=== PATIENT | female | born 1960 | race Asian ===

== ENCOUNTER 2018-08-27 16:53 | Emergency (ER) | payer OTHER ==
[~2018-08-27] VITALS: Ht 165.1 cm; Wt 68.0 kg
[2018-08-27] MEDS ORDERED: methylPREDNISolone SOD SUCC PF 125 MG/2 ML VIAL. IV ONE (17:00)
[2018-08-27] MEDS ORDERED: diphenhydrAMINE 50 MG/ML VIAL IVP ONE (17:00)
[2018-08-27] MEDS ORDERED: FAMOTIDINE 20 MG/2 ML VIAL IVP ONE (17:00)
--- NOTE | 2018-08-27 17:09 | PHYS DOC ---
Adult General Chief Complaint Chief Complaint: ALLERGIC REACTION HPI HPI Patient is a 58 year old F who arrives to ER with complaints of facial swelling , itching all over and feeling like her tongue is thick. She does not know of any known allergies but was eating a pastry just before this started. She does report mild SOB. She states that once prior she had some swelling around her eyes after she ate a donut. She has not taken any medications at home prior to arrival. Review of Systems Review of Systems Constitutional: Denies fever or chills HENT: Denies sore throat. Reports tongue and throat feel swollen. Respiratory: Denies cough. Reports SOB. Cardiovascular: Denies CP. GI: Denies abdominal pain, nausea, vomiting, bloody stools or diarrhea Musculoskeletal: Denies back pain or joint pain Integument: Reports red itchy skin. Neurologic: Denies headache, focal weakness or sensory changes All other systems were reviewed and found to be within normal limits, except as documented in this note. Current Medications Current Medications Current Medications Medications (Trade) Dose Ordered Sig/Miriam Start Time Stop Time Status Last Admin Dose Admin Diphenhydramine HCl (Benadryl) 25 mg 1X ONCE 08/27/18 17:00 08/27/18 17:08 DC 08/27/18 17:12 25 MG Famotidine (Pepcid Vial) 20 mg 1X ONCE 08/27/18 17:00 08/27/18 17:08 DC 08/27/18 17:11 20 MG Methylprednisolone Sodium Succinate (SOLU-Medrol 125MG VIAL) 125 mg 1X ONCE 08/27/18 17:00 08/27/18 17:08 DC 08/27/18 17:11 125 MG Allergies Allergies Allergies Coded Allergies Type Severity Reaction Last Updated Verified No Known Drug Allergies 08/27/18 No Physical Exam Physical Exam Constitutional: Well developed, well nourished, no acute distress, non-toxic appearance. HENT: Normocephalic, atraumatic. Face appears puffy, uvula appears mildly swollen, tongue appears normal, oropharynx patent at time of exam Eyes: PERRLA, EOMI, conjunctiva normal, edema periorbital B Neck: Normal range of motion, no tenderness, supple, no stridor. Cardiovascular:Heart rate regular rhythm, no murmur Lungs & Thorax: Bilateral breath sounds clear to auscultation Abdomen: Bowel sounds normal, soft, no tenderness, no masses, no pulsatile masses. Skin: Flushed red skin throughout, facial edema Back: No tenderness, no CVA tenderness. Extremities: No tenderness, no cyanosis, no clubbing, ROM intact Neurologic: Alert and oriented X 3, normal motor function, normal sensory function, no focal deficits noted. Psychologic: Affect normal, judgement normal, mood normal. Current Patient Data Vital Signs Vital Signs Date Time Temp Pulse Resp B/P (MAP) Pulse Ox O2 Delivery O2 Flow Rate FiO2 08/27/18 18:30 66 14 154/77 (102) 96 Room Air 08/27/18 16:55 98.0 98.0 EKG EKG [] Radiology/Procedures Radiology/Procedures [] Course & Med Decision Making Course & Med Decision Making Pertinent Labs and Imaging studies reviewed. (See chart for details) Recheck at 1728: Pt already doing better. Just rcvd Benadryl, SoluMedrol and Pepcid IV. Facial swelling improving and she reports sinus congestion improving. Will continue to monitor. Recheck 1800: Pt sleepy but reports feeling no swelling of her mouth and feeling greatly improved. Recheck 1830: Pt with minimal residual swelling under eyes and no other symptoms at this time. Discussed discharge home with oral prednisone, and for her to continue Benadryl and Pepcid at home. Pt will also be prescribed an Epi- pen and discussed that she needs close f/u with her PCP and an [employer] consultant since we do not currently know the cause of her allergic reaction. Pt to return if symptoms worsen at anytime. Dragon Disclaimer Dragon Disclaimer This electronic medical record was generated, in whole or in part, using a voice recognition dictation system. Departure Departure Impression: Primary Impression: Allergic reaction Disposition: HOME, SELF-CARE Condition: IMPROVED Referrals: MIGUEL GALLARDO MD Patient Instructions: Food Allergy and Anaphylaxis Additional Instructions: We are not 100% sure what caused your allergic reaction today. It could be from the pastry you were eating but it is not clear. The severity of this allergic reaction is concerning and we recommend very close follow up with your primary care doctor and plans for allergy testing. We will prescribe an Epi- Pen today which is an emergency injection you take if you have symptoms of an allergic reaction and your throat starts swelling shut or you can't breath. Your symptoms have improved today but we recommend continuing oral steroids, antihistamines (such as Benadryl, Zyrtec, Claritin or Shandra) and either Pepcid or Zyrtec for the next several days. Return to ER if symptoms worsen at anytime. Scripts Epinephrine (EPIPEN 2-BJORN) 0.3 Mg/0.3 Ml Auto.injct 0.3 MG IJ PRN PRN for ANAPHYLAXIS for 2 Days, #2 SYR Prov: NICHO SHAH 08/27/18 Prednisone (PREDNISONE) 20 Mg Tablet 1 TAB PO BID for 5 Days, #10 TAB Prov: NICHO SHAH 08/27/18 NICHO SHAH Aug 27, 2018 17:09
[2018-08-27] MEDS ORDERED: EPIPEN 2-P0.3 MG/0.3 IJ (18:17)
[2018-08-27] MEDS ORDERED: PRED20TA PO (18:17)
[2018-08-27 18:30] VITALS: BP 154/77
== END 2018-08-27 18:48 | disposition home or self-care (01) ==
LOC: ER 16:53
DX: L29.8 Other pruritus (principal); R06.02 Shortness of breath; T78.1XXA Other adverse food reactions, not elsewhere classified, initial encounter; X58.XXXA Exposure to other specified factors, initial encounter
CPT/HCPCS: 96374; 96375; 99284; J1200; J2930; J3490